=== PATIENT | female | born 1940 | race Hispanic/Latino ===

== ENCOUNTER 2018-01-20 16:03 | Outpatient (CLI) | payer MEDICARE, OTHER ==
--- NOTE | 2018-01-20 18:39 | XRay Report ---
FINAL REPORT EXAM: XR CHEST ROUTINE 2V HISTORY: CHEST PAIN TECHNIQUE: PA and lateral views of the chest PRIORS: None. FINDINGS: Lines, tubes, and devices: N/A Lungs and pleura: Trachea is normal in position. Lungs are clear of infiltrate, pleural effusion, vascular congestion, or pneumothorax. Cardiomediastinal silhouette: Cardiac and mediastinal silhouettes are unremarkable. Other: Bony structures demonstrates doubt S-shaped scoliosis of the thoracolumbar spine. Degenerative disc changes throughout the thoracic spine are seen. There also compression deformity of approximately T11 vertebral body of indeterminate age. IMPRESSION: No acute cardiopulmonary process seen.
== END 2018-01-20 16:04 | disposition home or self-care (01) ==
LOC: XRAY 16:03
PROVIDERS: ATTEND Family Medicine Adult Medicine
DX: R07.89 Other chest pain (principal); R06.02 Shortness of breath; R10.9 Unspecified abdominal pain; M47.894 Other spondylosis, thoracic region
CPT/HCPCS: 71046

== ENCOUNTER 2018-01-27 11:24 | Outpatient (CLI) | payer MEDICARE, OTHER ==
--- NOTE | 2018-01-27 15:28 | Ultrasound Report ---
ULTRASOUND ABDOMEN COMPLETE: TECHNIQUE: Transabdominal ultrasound with color Doppler interrogation. HISTORY: abdominal pain. COMPARISON: none. FINDINGS: LIVER: The liver is normal size and contour. The liver parenchyma is slightly echogenic suggesting fatty infiltration or other parenchymal disease. No focal mass is identified. BILIARY SYSTEM: Cholecystectomy. No biliary dilatation. The CBD measures 5.2 mm. PANCREAS: Obscured by bowel gas. SPLEEN: Normal. 11.4 cm. KIDNEYS: Normal. AORTA/IVC: Normal. ASCITES: None. IMPRESSION: Slightly echogenic liver suggesting mild fatty infiltration or other parenchymal disease. Cholecystectomy. The pancreas is obscured.
== END 2018-01-27 11:25 | disposition home or self-care (01) ==
LOC: US 11:24
PROVIDERS: ATTEND Family Medicine Adult Medicine
DX: R10.9 Unspecified abdominal pain (principal); Z90.49 Acquired absence of other specified parts of digestive tract
CPT/HCPCS: 76700

== ENCOUNTER 2021-08-20 06:54 | Outpatient (CLI) | payer MEDICARE ==
--- NOTE | 2021-08-20 09:24 | Magnetic Resonance Report ---
MR lumbar spine wo con INDICATION / CLINICAL INFORMATION: M47.816,LOWER BACK PAIN AND BILAT. LEG PAIN. TECHNIQUE: Multisequence, multiplanar images of the lumbar spine were obtained. COMPARISON: None available. FINDINGS: NOMENCLATURE: For the purposes of this report, L5-S1 is defined as axial image 36 of series 7. ALIGNMENT: Leftward curvature with apex at L2-L3. 3 mm anterolisthesis of L4-5. VERTEBRAE:No aggressive osseous marrow signal. Vertebral body heights are preserved. VISUALIZED SPINAL CORD: The conus appears within normal limits. [id number] ANALYSIS: Disc desiccation with disc space height loss most pronounced at T12-L1, L1-L2, L2-L3. Mild foraminal narrowing is present at T12-L1. Moderate left foraminal narrowing is present at T11-T12. L1-2: Small asymmetric to right disc bulge. Mild facet arthropathy No significant spinal canal stenos is. Severe right and no significant left foraminal narrowing. L2-3: Small asymmetric to right disc bulge. Mild facet arthropathy. Tiny right central protrusion res ults in mild right lateral recess narrowing. No significant spinal canal stenosis. Mild right and no significant left foraminal narrowing. L3-4: Small disc bulge. Mild facet arthropathy. No significant spinal canal stenosis. Mild foraminal narrowing. L4-5: Advanced facet arthropathy. Uncovering of the disc. No significant spinal canal stenosis. Mild lateral recess and foraminal narrowing. L5-S1: Mild minimal disc bulging.Advanced left and mild right facet arthropathy. Left foraminal narr owing. No significant spinal canal stenosis. PARASPINAL SOFT TISSUES: No significant abnormality. ADDITIONAL FINDINGS: None. IMPRESSION: Levoscoliosis with apex at L2-3. No significant spinal canal stenosis at any level. Severe right L1-L 2 and moderate left T11-T12 foraminal narrowing. Correlate for nerve root symptoms. Otherwise, there are diffuse mild spondylotic changes throughout the lumbar spine as above. Definitions used for the purposes of this report: Lumbar canal stenosis (Karley et al. Br J Radiol. 2012;86(8979):[id number]): No stenosis: No attenuation of the CSF spaces Mild stenosis: Anterior CSF space mildly obliterated Moderate stenosis: Anterior CSF space is moderately obliterated; cauda equina partially aggregated Severe stenosis: Marked compression of the dural sac; cauda equina cannot be visually and a ppear as a bundle Lumbar lateral recess stenosis (Nickie et al. World J Radiol. 2017 December 28;9(5):223-229): No stenosis: Nerve root is bathed in fluid Mild stenosis: Narrowing of the lateral recess without root deviation Moderate stenosis: Narrowing of the recess with nerve root deviation Severe stenosis: Compression of the nerve root Lumbar neural foraminal stenosis (Khari et al. AJR Am J Roentgenol. 2010 Nov;194(4):1095-8): No stenosis: No attenuation of the fat in the foramen Mild stenosis: Loss of the fat in the foramen on two sides Moderate stenosis: Loss of the fat in the foramen all four sides Severe stenosis: Loss of the fat in the foramen all four sides and compression of the nerve root Signer Name: Carl Song MD Signed: 08/20/2021 9:19 AM Workstation Name: [id number]
== END 2021-08-20 06:55 | disposition home or self-care (01) ==
LOC: MRI 06:54
PROVIDERS: ATTEND Anesthesiology Pain Medicine
DX: M48.05 Spinal stenosis, thoracolumbar region (principal); M47.816 Spondylosis without myelopathy or radiculopathy, lumbar region; M51.37 Other intervertebral disc degeneration, lumbosacral region; M41.86 Other forms of scoliosis, lumbar region
CPT/HCPCS: 72148

== ENCOUNTER 2021-12-16 06:47 | Outpatient (CLI) | payer MEDICARE ==
--- NOTE | 2021-12-16 10:15 | Magnetic Resonance Report ---
MRI THORACIC SPINE 12/16/2021 INDICATION / CLINICAL INFORMATION: M54.14, BACK AND BILAT. LEG PAIN. COMPARISON: None available. FINDINGS: GENERAL OBSERVATIONS: Unenhanced MR images of the thoracic spine were obtained. There is right convex scoliosis of the thoracic spine centered in the midthoracic spine. There is no evidence of acute abnormality. There is no evidence of epidural mass, fluid collection, canal stenosis, or spinal cord compression. Age-related disc desiccation and mild diffuse disc bulging is present throughout the thoracic spine, with no evidence of focal disc herniation. BONE MARROW: No significant abnormality SPINAL CORD: No significant abnormality PARASPINAL SOFT TISSUES: No significant abnormality. IMPRESSION: No acute or significant abnormality. Mild age-related changes. Signer Name: Nirav Shaffer MD Signed: 12/16/2021 10:11 AM Workstation Name: [email or web address]
== END 2021-12-16 06:48 | disposition home or self-care (01) ==
LOC: MRI 06:47
PROVIDERS: ATTEND Anesthesiology
DX: M41.84 Other forms of scoliosis, thoracic region (principal); M54.14 Radiculopathy, thoracic region
CPT/HCPCS: 72146